=== PATIENT | male | born 1960 | race Caucasian/White ===

== ENCOUNTER → 2020-08-10 | Outpatient (CLI) | payer OTHER | LOC: HEART 5 10:03 | DX: J84.10 Pulmonary fibrosis, unspecified (principal) | CPT/HCPCS: 94060; 94729 ==

== ENCOUNTER → 2020-12-10 | Outpatient (CLI) | payer OTHER | LOC: KOH-I 08:11 | DX: J84.112 Idiopathic pulmonary fibrosis (principal); R91.8 Other nonspecific abnormal finding of lung field | CPT/HCPCS: 71250 ==